=== PATIENT | female | born 1990 | race Caucasian/White ===

== ENCOUNTER 2018-11-17 10:23 | Emergency (ER) | payer OTHER ==
[~2018-11-17] VITALS: Ht 165.1 cm; Wt 66.2 kg
[2018-11-17 10:43] VITALS: BP 121/76; Ht 165.1 cm; Wt 66.2 kg
[2018-11-17 14:19] LABS: BASOPHIL % 0.3 % (0-2); PLATELET COUNT 248 x10^3mcL (130-400)
[2018-11-17 14:30] LABS: microscopic required? YES; urine erythrocyte TRACE (NEGATIVE)
== END 2018-11-17 15:27 | disposition home or self-care (01) ==
LOC: ED 10:23
PROVIDERS: Specialist
DX: O20.0 Threatened abortion (principal); Z88.1 Allergy status to other antibiotic agents; Z88.8 Allergy status to other drugs, medicaments and biological substances; Z98.86 Personal history of breast implant removal
CPT/HCPCS: 36415